=== PATIENT | female | born 1950 | race Caucasian/White ===

== ENCOUNTER 2016-08-26 09:37 | Emergency (ER) | payer MEDICARE, BC ==
--- NOTE | 2016-09-18 21:30 | ER ---
ADMIT: 08/26/2016 RM/LOC: ER [facility] MR#: [id number] [id number] [place], [place] [id number] LIZBETH BEST [address] [place] [id number] Emergency Room Report SEX: F AGE: 66 : 1950 DATE: 08/26/2016 ADDENDUM: HISTORY OF PRESENT ILLNESS: This patient comes to the ER because yesterday morning, she started with some tingling in her right arm and also tingling in her right lower leg. She has had a stroke in the past and has some issues with balance, and she thinks her balance is a little more off than normal. She denies any pain. Able to eat and drink normally, and her thinks that her speech is normal. PHYSICAL EXAMINATION: This is an alert 66-year-old white female. She answers questions and speaks appropriately. Strength is equal bilaterally in both the upper and lower extremities. I did have her ambulate without any difficulty. LABORATORY AND X-RAY DATA: CAT scan of her head showed nothing acute. CBC, BMP, and urinalysis were normal. DIAGNOSIS: Numbness/weakness on the right upper and right lower extremity. I did consult with Dr. Sandoval concerning treatment of this patient. We will have the patient follow up with her Primary on Saturday. Please see my T-sheet. ELICIA Brown / Kumar Aaron MD / jill JOB #: [id number] CC: Kumar Aaron MD, Attending Physician Prabhjot Figueroa MD, Family Physician
== END 2016-08-26 12:15 | disposition home or self-care (01) ==
LOC: ER 09:37
DX: R53.1 Weakness (principal); R20.0 Anesthesia of skin; Z90.710 Acquired absence of both cervix and uterus; Z98.890 Other specified postprocedural states; Z79.82 Long term (current) use of aspirin; Z79.899 Other long term (current) drug therapy

== ENCOUNTER → 2016-09-03 | Outpatient (CLI) | payer MEDICARE, BC ==
--- NOTE | ~2016-09-03 | ECH ---
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 Summary Technically good exam. The estimated left ventricular ejection fraction is 60%. Bubble study was done, there is no evidence for a PFO or ASD. No significant valvular abnormalities. Recommendation The patient will be given the results of this study by the physician who ordered the exam. Procedure Type of Study TTE procedure:Echo Complete SF. Procedure Date Date: 09/03/2016 Start: 01:29 PM Technical Quality: Good visualization Additional Indications:Lacunar Infarct Appropriate Use Criteria: 9 Height: 62 inches Weight: 180 pounds BSA: 1.83 m Rhythm: NSR HR: 62 bpm BP: 130/80 mmHg M-Mode/2D Measurements LV Diastolic Dimension: 4.21 cm LV Systolic Dimension: 2.46 cm LV Septum Diastolic: 0.65 cm LV PW Diastolic: 0.6 cm AO Root Dimension: 2.68 cm Cardiac Output: 4.62 l/min LA Dimension: 3.08 cm Cardiac Index: 2.52 l/min*m RV Diastolic Dimension: 2.9 cm LA volume index: 27 ml/m LVOT: 1.93 cm LVOT VTI: 25.46 cm RV Base: 3.1 cm LV Stroke volume: 74.45 ml RV Mid: 2.6 cm LV Stroke volume index: 40.68 ml/m TAPSE: 2.3 cm TDI-S': 11 cm/s Doppler Measurements AV Peak Velocity: 1.3 m/s MV Peak E-Wave: 0.87 m/s AV Peak Gradient: 6.76 mmHg MV Peak A-Wave: 0.71 m/s AV Mean Gradient: 4.22 mmHg MV E/A Ratio: 1.23 LVOT Peak Velocity: 1.02 m/s MV P1/2t: 52.3 msec AV Area (Continuity):2.42 cm MV Deceleration Time: 186.5 msec TR Velocity:2.3 m/s MV Area (PHT): 4.21 cm TR Gradient:21.12 mmHg PV Peak Velocity: 0.84 m/s Estimated RAP:3 mmHg PV Peak Gradient: 2.8 mmHg Estimated RVSP: 24 mmHg Estimated PASP: 24.12 mmHg E' Septal Velocity: 0.07 m/s A' Septal Velocity: 0.07 m/s E' Lateral Velocity: 0.11 m/s A' Lateral Velocity: 0.08 m/s RA Area: 12.59 cm Findings Left Ventricle Normal left ventricle size and function. Diastolic assessment reveals normal relaxation. Right Ventricle Normal right ventricle structure and function. Left Atrium Normal left atrial size. Informed consent was obtained, bubble study was done, there is no evidence for a PFO or ASD. Right Atrium Normal right atrial size. Mitral Valve Normal mitral valve structure and function. Trivial mitral regurgitation by color Doppler. Aortic Valve Normal aortic valve structure and function. Tricuspid Valve Normal tricuspid valve structure and function. Mild tricuspid regurgitation by color Doppler. Normal pulmonary pressures. Pulmonic Valve Normal pulmonic valve structure and function. Pericardial Effusion No evidence of pericardial effusion. Miscellaneous Visualized portions of the aortic root and ascending aorta appear normal in size. Pleural Effusion No evidence of pleural effusion. Contractility Score LV regional wall motion:(0-Non visualized 1-Normal 2-Hypokinesis 3-Akinesis 4-Dyskinesis 5-Aneurysm) Signature
== END | disposition home or self-care (01) ==
LOC: RAD.S 08-27 16:03 → CARD 13:00
DX: I63.9 Cerebral infarction, unspecified (principal); I10 Essential (primary) hypertension; I65.23 Occlusion and stenosis of bilateral carotid arteries